=== PATIENT | male | born 1990 | race Caucasian/White ===

== ENCOUNTER 2016-11-30 20:31 | Emergency (ER) | payer OTHER | END 2016-11-30 21:40 | disposition home or self-care (01) | LOC: FER 20:31 | DX: J01.90 Acute sinusitis, unspecified (principal); K21.9 Gastro-esophageal reflux disease without esophagitis; F17.210 Nicotine dependence, cigarettes, uncomplicated; Z90.49 Acquired absence of other specified parts of digestive tract; Z79.899 Other long term (current) drug therapy | CPT/HCPCS: 87450; 99283 ==

== ENCOUNTER → 2020-04-13 | Day surgery (SDC) | payer OTHER ==
[~2020-04-13] MED LIST: ADVIL200 M1 PO; AMOXICILLIN500 M1 PO; BREO ELLIPTA 11 EACH INH; FLEXERIL5 MG PO; FLONASE ALLER15.8 ML; GABAPENTIN800 MG PO; HEARTBURN MED PO; MOBIC7.5 MG PO; OMEPRAZOLE 20MG20 MG PO; OTC ALLERGY MED PO; PERCOCET 5-3251 EACH PO; PROAIR HFA8.5 GM INH; RANITIDINE HCL150 M1 PO; SUDAFED30 MG PO; ZYRTEC10 M3 PO
[2020-04-13 08:45] LABS: BASOPHIL 0.5 % (0-2); EOSINOPHIL 3.5 % (0-5); HCT 42.8 % (42.0-52.0); HGB 14.3 g/dl (13.2-18.0); LYMPHOCYTE 36.7 % (15-48); MCH 29.8 pg (25.0-31.0); MCHC 33.4 g/dL (32.0-36.0); MCV 89.2 fL (78.0-100.0); MONOCYTE 6.4 % (0-12); MPV 10.1 fL (6.0-9.5); NEUTROPHIL 52.4 % (41-80); NRBC 0; PLT 444 K/uL (150-400); RDW 13.2 % (11.5-14.0); WBC 8.1 K/uL (4.0-10.5)
== END | disposition home or self-care (01) ==
LOC: FAS 08:09
PROVIDERS: Oral & Maxillofacial Surgery
DX: K02.63 Dental caries on smooth surface penetrating into pulp (principal); K21.9 Gastro-esophageal reflux disease without esophagitis; F17.210 Nicotine dependence, cigarettes, uncomplicated; J45.909 Unspecified asthma, uncomplicated; M79.7 Fibromyalgia; G43.909 Migraine, unspecified, not intractable, without status migrainosus; Z88.6 Allergy status to analgesic agent; Z20.822 Contact with and (suspected) exposure to COVID-19
CPT/HCPCS: 36415; 85025; J1100; J1170; J2250; J2405; J2704; J3010; J7120; U0002

== ENCOUNTER 2020-05-08 09:54 | Emergency (ER) | payer OTHER | END 2020-05-08 11:27 | disposition home or self-care (01) | LOC: FER 09:54 | DX: U07.1 COVID-19 (principal); J45.909 Unspecified asthma, uncomplicated; F17.210 Nicotine dependence, cigarettes, uncomplicated; Z88.8 Allergy status to other drugs, medicaments and biological substances | CPT/HCPCS: 99283; U0002 ==

== ENCOUNTER 2020-06-21 16:04 | Emergency (ER) | payer OTHER | END 2020-06-21 22:00 | disposition left against medical advice (07) | LOC: FER 16:04 | DX: M54.9 Dorsalgia, unspecified (principal); F17.210 Nicotine dependence, cigarettes, uncomplicated; Z87.19 Personal history of other diseases of the digestive system; Z88.8 Allergy status to other drugs, medicaments and biological substances; Z91.018 Allergy to other foods; Z53.8 Procedure and treatment not carried out for other reasons | CPT/HCPCS: J2270 ==

== ENCOUNTER 2020-11-28 08:08 | Emergency (ER) | payer OTHER ==
[2020-11-28] MEDS ORDERED: MEDROL 4MG DOSEP4 MG PO (11:23)
== END 2020-11-28 11:55 | disposition home or self-care (01) ==
LOC: FER 08:08
DX: G56.21 Lesion of ulnar nerve, right upper limb (principal); F17.210 Nicotine dependence, cigarettes, uncomplicated; Z88.6 Allergy status to analgesic agent
CPT/HCPCS: 99283

== ENCOUNTER 2021-11-11 10:42 | Emergency (ER) | payer OTHER ==
[~2021-11-11 10:42] MED LIST changes: +MEDROL 4MG DOSEP4 MG PO
[2021-11-11] MEDS ORDERED: IBUPROFEN800 MG PO (13:56)
== END 2021-11-11 14:19 | disposition home or self-care (01) ==
LOC: FER 10:42
DX: M25.531 Pain in right wrist (principal); M79.641 Pain in right hand; J45.909 Unspecified asthma, uncomplicated; K21.9 Gastro-esophageal reflux disease without esophagitis; Z88.8 Allergy status to other drugs, medicaments and biological substances; F17.210 Nicotine dependence, cigarettes, uncomplicated; Z79.899 Other long term (current) drug therapy; X58.XXXA Exposure to other specified factors, initial encounter; Y93.71 Activity, boxing; Y92.009 Unspecified place in unspecified non-institutional (private) residence as the place of occurrence of the external cause; Z28.310 Unvaccinated for COVID-19
CPT/HCPCS: 73110; 73130